=== PATIENT | male | born 1980 | race African-American/Black ===

== ENCOUNTER 2016-04-19 06:52 | Emergency (ER) | payer SELFPAY ==
[~2016-04-19] VITALS: Ht 182.9 cm; Wt 70.0 kg
[~2016-04-19 06:52] MED LIST: DICL75 PO; METR-1 PO; MMW SWISH-SPIT; OXYC-360 PO; PENI500T PO; Z.0.NO CURRENT MEDS
[2016-04-19 07:03] VITALS: BP 164/84; PULSE 75; RESP 15; TEMP 98.1; O2SAT 98
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
== END 2016-04-19 09:09 | disposition home or self-care (01) ==
LOC: NEPB 06:52
DX: H54.61 Unqualified visual loss, right eye, normal vision left eye (principal); R51 Headache; F17.210 Nicotine dependence, cigarettes, uncomplicated; F12.90 Cannabis use, unspecified, uncomplicated; F10.10 Alcohol abuse, uncomplicated
CPT/HCPCS: 70450; 70486

== ENCOUNTER 2016-09-03 23:36 | Emergency (ER) | payer SELFPAY ==
[~2016-09-03] VITALS: Ht 182.9 cm; Wt 68.0 kg
[2016-09-03 23:38] VITALS: BP 170/104; PULSE 87; RESP 16; TEMP 98.9; O2SAT 96
[2016-09-04] MEDS ORDERED: KETOROLAC TROMETHAMINE 60 MG/2 ML (IM) VIAL IM ONE (00:45)
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
== END 2016-09-04 01:20 | disposition home or self-care (01) ==
LOC: NEPD 23:36
DX: H57.11 Ocular pain, right eye (principal); H54.61 Unqualified visual loss, right eye, normal vision left eye
CPT/HCPCS: 96372; 99284; J1885